=== PATIENT | male | born 1955 | race Caucasian/White ===

== ENCOUNTER 2017-05-26 10:02 | Day surgery (SDC) | payer MEDICAID ==
[2017-05-22 16:06] LABS: BASOPHILS % (AUTO) 0.7 % (0-1); EOSINOPHILS # (AUTO) 0.1 X10'3 (0-0.9); EOSINOPHILS % (AUTO) 1.2 % (0-6); LYMPHOCYTES # (AUTO) 1.6 X10'3 (1.1-4.8); LYMPHOCYTES % (AUTO) 27.8 % (21-51); MEAN CORPUSCULAR HEMOGLOBIN 29.6 PG (27.0-31.0); MEAN CORPUSCULAR VOLUME 87.1 FL (78-98); MEAN PLATELET VOLUME 7.8 FL (7.4-10.4); MONOCYTES # (AUTO) 0.6 X10'3 (0-0.9); NEUTROPHILS # (AUTO) 3.3 X10'3 (1.8-7.7); NEUTROPHILS % (AUTO) 59.3 % (42-75); PRE OP HEMOGLOBIN 15.3 g/dL (14.0-17.9); PRE OP PLATELET COUNT 254 X10'3 (140-440); RED BLOOD COUNT 5.16 X10'6 (4.70-6.10); RED CELL DISTRIBUTION WIDTH 14.4 % (11.5-14.5)
[2017-05-22 16:13] LABS: CLARITY,URINE Clear (Clear); COLOR,URINE Yellow (Yellow); GLUCOSE, URINE Negative (Neg); KETONES,URINE Trace mg/dl (Neg); LEUKOCYTE ESTERASE ,URINE Negative (Neg); NITRITES, URINE Negative (Neg); OCCULT BLOOD,URINE Negative (Neg); PH,URINE 5.5 (4.8-8.0); PROTEIN,URINE Trace mg/dl (Neg)
[2017-05-22 16:16] LABS: PRE OP INR 0.9 INR; PRE OP PROTIME 9.8 SECONDS (9.0-12.0)
[2017-05-22 16:28] LABS: ALBUMIN 3.6 G/DL (3.4-5.0); ALBUMIN/GLOBULIN RATIO 0.9 (1.1-1.5); ALKALINE PHOSPHATASE 126 IU/L (46-116); BLOOD UREA NITROGEN 16 MG/DL (7-18); CALCIUM 8.6 MG/DL (8.5-10.1); CHLORIDE 107 MMOL/L (99-107); PRE OP ALT 35 U/L (30-65); PRE OP ANION GAP 7 (8-16); PRE OP AST 20 U/L (10-37); PRE OP BILIRUB, TOTAL 0.5 MG/DL (0.0-1.0); PRE OP GLUCOSE 122 MG/DL (70-104); PRE OP POTASSIUM 3.6 MMOL/L (3.4-5.1); PRE OP SODIUM 144 MMOL/L (135-145); TOTAL PROTEIN 7.4 G/DL (6.4-8.2); eGFR 76 ML/MIN
[2017-05-22 16:39] LABS: UA COLLECTION TYPE NON-SPECIFIED
[2017-05-22 16:46] LABS: BACTERIA,URINE NONE SEEN /HPF (Neg); FINE GRANULAR CAST 0-3 /LPF (NEGATIVE); MUCUS STRANDS MODERATE /LPF (Neg); RBC,URINE NONE SEEN /HPF (0-2); SQUAMOUS EPITHELIAL CELL,UR NONE SEEN /LPF (FEW); WBC,URINE 0-4 /HPF (0-4)
[~2017-05-26] VITALS: Ht 185.4 cm; Wt 104.3 kg
[2017-05-26] VITALS (7 sets, daily range): BP systolic 144–182; BP diastolic 91–97
[~2017-05-26 10:02] MED LIST: ALBU0.63 NEB; BECL8.7A6 INH; IPRA3AMP9 IH; albuterol 2.5 MG/3 ML nebule NEB ONE; ceFAZolin/D5W- 1GM premix 100 ML IV ONE; famotidine 20mg tablet PO ONE; ringers solution, lacted 1,000 ML IV SCH; sevoflurane 250ml liquid IH ONE
[2017-05-26] MEDS ORDERED: BUPIVAcaine/PF 2.5 mg/ml (0.25%) 30ml vial ONE (12:04)
[2017-05-26] MEDS ORDERED: LIDOcaine 1% 30ml vial 0 ML ONE (12:04)
[2017-05-26] MEDS ORDERED: ceFAZolin 1000mg inj ONE ×2 (12:04→13:04)
[2017-05-26] MEDS ORDERED: fentaNYL/PF 50MCG/1 ML 2ML syringe ONE ×2 (12:50→13:20)
[2017-05-26] MEDS ORDERED: propofol inj 20 ML IV ONE (12:50)
[2017-05-26] MEDS ORDERED: midazolam 2 mg/2 ml injection ONE (12:50)
[2017-05-26] MEDS ORDERED: LIDOcaine 2% (20mg/ml) 5ml vial ONE ×2 (12:50)
[2017-05-26] MEDS ORDERED: ringers solution, lacted 1,000 ML IV SCH (13:24)
[2017-05-26] MEDS ORDERED: enalaprilat dihydrate 2.5mg/2ml vial IV PRN (13:25)
[2017-05-26] MEDS ORDERED: ondansetron/PF 4mg/2ml inj IV PRN (13:25)
[2017-05-26] MEDS ORDERED: hydrALAZINE 20mg/ml inj. IV PRN (13:25)
== END 2017-05-26 14:45 | disposition home or self-care (01) ==
LOC: PAS 10:02
PROVIDERS: ATTEND Surgery
DX: L72.3 Sebaceous cyst (principal); J44.9 Chronic obstructive pulmonary disease, unspecified; Z87.891 Personal history of nicotine dependence; Z79.899 Other long term (current) drug therapy
CPT/HCPCS: 11406; 12032; 36415; 71046; 80053; 81001; 85025; 85610; 85730; 93005; 94640; 94760; A6446; A6449; J0690; J2001; J2250; J2704; J3010; J3490; J7120; A7000

== ENCOUNTER 2020-08-12 19:54 | Emergency (ER) | payer MEDICAID ==
[~2020-08-12] VITALS: Ht 185.4 cm; Wt 97.3 kg
[~2020-08-12 19:54] MED LIST changes: -albuterol 2.5 MG/3 ML nebule NEB ONE; -ceFAZolin/D5W- 1GM premix 100 ML IV ONE; -famotidine 20mg tablet PO ONE; -ringers solution, lacted 1,000 ML IV SCH; -sevoflurane 250ml liquid IH ONE
[2020-08-12 20:21] VITALS: BP 116/54
== END 2020-08-12 23:32 | disposition left against medical advice (07) ==
LOC: ER 19:54
DX: R06.6 Hiccough (principal); Z53.21 Procedure and treatment not carried out due to patient leaving prior to being seen by health care provider

== ENCOUNTER 2021-10-22 02:02 | Emergency (ER) | payer MEDICAID ==
[~2021-10-22] VITALS: Ht 185.4 cm; Wt 97.0 kg
[2021-10-22] MEDS ORDERED: oxymetazoline 15 ML nasal spray NS ONE (04:00)
[2021-10-22] MEDS ORDERED: albuterol 2.5 MG/3 ML nebule NEB ONE (05:05)
[2021-10-22 05:21] VITALS: BP 134/90
== END 2021-10-22 05:53 | disposition home or self-care (01) ==
LOC: ER 02:03
DX: R04.0 Epistaxis (principal); I10 Essential (primary) hypertension; J44.9 Chronic obstructive pulmonary disease, unspecified; F17.200 Nicotine dependence, unspecified, uncomplicated; Z79.899 Other long term (current) drug therapy; Z79.82 Long term (current) use of aspirin
CPT/HCPCS: 30901; 30905; 94640; 94760; 99283; 99284

== ENCOUNTER 2023-03-16 09:01 | Emergency (ER) | payer MEDICARE, MEDICAID ==
[~2023-03-16] VITALS: Ht 185.4 cm; Wt 97.6 kg
[2023-03-16] MEDS ORDERED: normal saline 1000ML IV soln IVB ONE (10:50)
[2023-03-16] MEDS ORDERED: ondansetron/PF 4mg/2ml inj IV ONE (10:50)
[2023-03-16] MEDS ORDERED: LORazepam 2 mg/ml vial IV ONE (10:50)
[2023-03-16] MEDS ORDERED: meclizine 12.5mg tablet PO ONE (10:50)
[2023-03-16 11:15] LABS: HEMATOCRIT 44.5 % (42.0-52.0); HEMOGLOBIN 14.8 g/dl (14.0-17.9); MEAN CORPUSCULAR HEMOGLOBIN 30.1 PG (27.0-31.0); MEAN CORPUSCULAR HGB CONC 33.3 g/dL (33.0-36.5); MEAN CORPUSCULAR VOLUME 90.3 FL (78-98); MEAN PLATELET VOLUME 8.4 FL (7.4-10.4); NEUTROPHILS % (AUTO) 68.7 % (42-75); PLATELET COUNT 187 X10'3 (140-440); RED BLOOD COUNT 4.93 X10'6 (4.70-6.10); WHITE BLOOD COUNT 4.7 X10'3 (4.5-11.0)
[2023-03-16 11:16] LABS: BASOPHILS % (AUTO) 0.3 % (0-1); EOSINOPHILS % (AUTO) 0.3 % (0-6); LYMPHOCYTES % (AUTO) 21.4 % (21-51); MONOCYTES # (AUTO) 0.4 X10'3 (0-0.9); MONOCYTES % (AUTO) 9.3 % (2-12); NEUTROPHILS # (AUTO) 3.3 X10'3 (1.8-7.7)
[2023-03-16 11:26] LABS: ALANINE AMINOTRANSFERASE 32 U/L (12-78); ALBUMIN 3.8 G/DL (3.4-5.0); ALBUMIN/GLOBULIN RATIO 1.2 (1.1-1.5); ALKALINE PHOSPHATASE 132 IU/L (46-116); ANION GAP 6 (8-16); ASPARTATE AMINO TRANSFERASE 20 U/L (10-37); BILIRUBIN,TOTAL 0.8 MG/DL (0.1-1.0); BLOOD UREA NITROGEN 12 MG/DL (7-18); BUN/CREATININE RATIO 14.8 (10.0-20.0); CALCIUM 9.2 MG/DL (8.5-10.1); CHLORIDE 105 MMOL/L (99-107); CREATININE 0.81 MG/DL (0.60-1.10); GLUCOSE 91 MG/DL (70-104); POTASSIUM 3.8 MMOL/L (3.5-5.1); SODIUM 141 MMOL/L (135-145); TOTAL CARBON DIOXIDE 30.5 MMOL/L (24-32); eCRCL 100 ML/MIN; eGFR > 90 ML/MIN
[2023-03-16 13:30] LABS: BILIRUBIN,URINE NEGATIVE (Neg); CLARITY,URINE CLEAR (Clear); COLOR,URINE YELLOW (Yellow); GLUCOSE, URINE NEGATIVE (Neg); KETONES,URINE NEGATIVE (Neg); LEUKOCYTE ESTERASE ,URINE NEGATIVE (Neg); NITRITES, URINE NEGATIVE (Neg); OCCULT BLOOD,URINE TRACE-INTACT (Neg); PROTEIN,URINE NEGATIVE (Neg); UROBILINOGEN,URINE 0.2 E.U/dL (0.2-1.0)
[2023-03-16 13:35] LABS: UA COLLECTION TYPE CLN CATCH MIDSTREAM
[2023-03-16 13:38] LABS: BACTERIA,URINE NONE SEEN /HPF (Neg); RBC,URINE 0-2 /HPF (0-2); SQUAMOUS EPITHELIAL CELL,UR FEW /LPF (FEW); WBC,URINE 0-4 /HPF (0-4)
[2023-03-16] MEDS ORDERED: MECL-302 PO (13:55)
[2023-03-16] MEDS ORDERED: LORA-268 PO (13:55)
[2023-03-16 14:31] VITALS: BP 127/89; PULSE 66; RESP 13; TEMP 98.7; O2SAT 97
== END 2023-03-16 15:00 | disposition home or self-care (01) ==
LOC: ER 09:01
DX: R42 Dizziness and giddiness (principal)
CPT/HCPCS: 36415; 70450; 71045; 80053; 81001; 84484; 85025; 93005; 96361; 96374; 96375; 99285; J2060; J2405; J7030; J8597

== ENCOUNTER 2023-05-20 12:00 | Emergency (ER) | payer MEDICARE, MEDICAID ==
[~2023-05-20] VITALS: Ht 185.4 cm; Wt 100.8 kg
[~2023-05-20 12:00] MED LIST changes: +LORA-268 PO; +MECL-302 PO
[2023-05-20 12:03] VITALS: BP 146/69; PULSE 66; TEMP 97.7; O2SAT 99
[2023-05-20] MEDS ORDERED: HYDROcodone/acetaminophen 5mg/325mg tablet PO ONE (14:25)
[2023-05-20] MEDS ORDERED: HYDR-3965 PO (14:38)
[2023-05-20 15:03] VITALS: RESP 16
== END 2023-05-20 15:14 | disposition home or self-care (01) ==
LOC: ER 12:01
DX: S43.102A Unspecified dislocation of left acromioclavicular joint, initial encounter (principal); I10 Essential (primary) hypertension; J44.9 Chronic obstructive pulmonary disease, unspecified; Z79.899 Other long term (current) drug therapy; Z88.8 Allergy status to other drugs, medicaments and biological substances; W19.XXXA Unspecified fall, initial encounter; Y93.89 Activity, other specified; Z91.81 History of falling; Y92.098 Other place in other non-institutional residence as the place of occurrence of the external cause; Y99.8 Other external cause status
CPT/HCPCS: 73030; 99284; A4565